=== PATIENT | male | born 1980 | race American Indian/Alaskan Native ===

== ENCOUNTER 2019-01-14 11:37 | Emergency (ER) | payer SELFPAY ==
[2019-01-14] MEDS ORDERED: SODIUM CHLORIDE IRRI 500 ML 500 ML IR ONE (11:49)
[2019-01-14] MEDS ORDERED: TETANUS,DIPH,PERTUSS(ACELL) VACCINE 0.5 ML SYRINGE IM ONE (11:58)
[2019-01-14] MEDS ORDERED: HYDROcodone/ACETAMINOPHEN 5-325 MG TAB PO ONE (11:58)
[2019-01-14] MEDS ORDERED: LIDOCAINE PF 100 MG/5 ML (CARDIAC SYRINGE) IV ONE (12:02)
[2019-01-14] MEDS ORDERED: BUPIVACAINE/PF (0.5%) 5 MG/1 ML 10 ML VIAL INFILTRATI ONE ×2 (12:03→12:21)
--- NOTE | 2019-01-14 12:04 | Emergency Department Report ---
HPI - General Chief Complaint: Extremity Injury, Upper Time Seen by Provider: 01/14/19 11:52 - HPI HPI: Room 21 The patient is a 38-year-old male presenting with a chief complaint of left index finger injury. The patient states he was at work when someone activated machine he was working with causing his left index finger to get pinched in the mechanism. This avulsed the pad of his left finger. Patient denies pain elsewhere. Patient uses pain score 10/10. Location: [See above] Duration: [See above] Quality: [See above] Severity: [See above] Timing: [See above] Context: [See above] Modifying factors: [See above] Associated signs and symptoms: [see above] ED Past Medical Hx - Past Medical History Previous Medical History?: No - Surgical History Past Surgical History?: No - Family History Family history: no significant - Social History Smoking Status: Never Smoker Substance Use Type: Marijuana - Medications Home Medications: Home Medications Medication Instructions Recorded Confirmed Last Taken Type HYDROcodone/APAP 5-325 [[place] 1 - 2 each PO Q6HR PRN #20 tablet 01/14/19 Unknown Rx 5/325] Ibuprofen [Motrin 800 MG tab] 800 mg PO Q8HR PRN #20 tablet 01/14/19 Unknown Rx cephALEXin [Keflex] 500 mg PO Q6HR #40 capsule 01/14/19 Unknown Rx ED Review of Systems ROS: Stated complaint: CHOPPED FINGER Other details as noted in HPI Constitutional: no symptoms reported Eyes: denies: eye pain ENT: denies: throat pain Respiratory: no symptoms reported Cardiovascular: denies: chest pain Endocrine: no symptoms reported Gastrointestinal: denies: abdominal pain Genitourinary: denies: dysuria Musculoskeletal: myalgia Neurological: denies: headache - Laceration /Wound Repair Left Finger Wound Location: upper extremity Wound Explored: clean Irrigated w/ Saline (ccs): 500 Betadine Prep?: Yes Anesthesia: 1% Lidocaine Volume Anesthetic (ccs): 8 (digital block performed using bupivacaine 0.5% mixed with lidocaine 1% plain in a 1:1 ratio) Wound Repaired With: sutures Suture Size/Type: 5:0, nylon Number of Sutures: 11 Layer Closure?: No Sterile Dressing Applied?: Yes Progress: Avulsed fingerpad skin sutured back to injured finger. Skin was brought in by coworkers wrapped in a piece of plastic which was placed in a bag of ice. The avulsed skin was irrigated with normal saline copiously ED Medical Decision Making - Differential Diagnosis finger pad avulsion Critical care attestation.: If time is entered above; I have spent that time in minutes in the direct care of this critically ill patient, excluding procedure time. ED Disposition Clinical Impression: Avulsion of finger tip, Finger pain, left, Fracture of distal phalanx of left index finger Disposition: TO HOME OR SELFCARE Is pt being admited?: No Does the pt Need Aspirin: No Condition: Stable Instructions: Laceration (ED), Suture Care (ED), Acute Wound Care (ED) Additional Instructions: Return to the emergency department should you develop worsening symptoms, inability to tolerate food or liquids, high fever or any other concerns Prescriptions: cephALEXin [Keflex] 500 mg PO Q6HR #40 capsule Ibuprofen [Motrin 800 MG tab] 800 mg PO Q8HR PRN #20 tablet PRN Reason: Pain, Moderate (4-6) HYDROcodone/APAP 5-325 [[place] 5/325] 1 - 2 each PO Q6HR PRN #20 tablet PRN Reason: Pain Referrals: ASHLEY KIM MD [Staff Physician] - 3-5 Days (Dr. Kim is an orthopedic surgeon. Please follow up with him for further evaluation) Time of Disposition: 13:57
[2019-01-14] MEDS ORDERED: LIDOCAINE (1%) 10 MG/1 ML VIAL 20 ML MDV ONE (12:06)
[2019-01-14] MEDS ORDERED: SODIUM CHLORIDE 0.9% IRR 500 ML BOTTLE IR ONE (12:20)
[2019-01-14] MEDS ORDERED: LIDOCAINE (1%) 10 MG/1 ML VIAL 20 ML MDV INFILTRATI ONE (12:23)
--- NOTE | 2019-01-14 12:47 | XRay Report ---
LEFT FINGERS 3 VIEWS HISTORY: Trauma. COMPARISON: None. TECHNIQUE: 3 views of the left index finger were obtained. FINDINGS: Bones: A transverse nondisplaced fracture of the distal phalanx of the index finger. No callus. A ban dage obscures bony detail. No other fractures. Joint spaces: Maintained. Soft tissues: Mild soft tissue swelling of the index finger.No foreign body or soft tissue air. Additional findings: None. IMPRESSION: 1. An acute nondisplaced closed traumatic fracture of the distal phalanx of the index finger. 2. No other significant abnormality. Signer Name: Rome Diaz MD Signed: 01/14/2019 12:42 PM Workstation Name: [id number]
[2019-01-14] MEDS ORDERED: ceFAZolin 1 GM VIAL IM ONE ×2 (13:47→13:49)
[2019-01-14] MEDS ORDERED: NEOMY 3.5 MG/BACIT 400 UNITS/POLY B 5000 UNITS/GM OINT PACKET TP ONE (13:50)
== END 2019-01-14 14:28 | disposition home or self-care (01) ==
LOC: ED 11:37
DX: S62.631A Displaced fracture of distal phalanx of left index finger, initial encounter for closed fracture (principal); S61.201A Unspecified open wound of left index finger without damage to nail, initial encounter; F12.10 Cannabis abuse, uncomplicated; W22.8XXA Striking against or struck by other objects, initial encounter; Y93.89 Activity, other specified; Y92.89 Other specified places as the place of occurrence of the external cause; Y99.8 Other external cause status
CPT/HCPCS: 12001; 73140; 90471; 96372; 99283; J0690; 90715; A6250; J2001